=== PATIENT | female | born 1930 | race Caucasian/White ===

== ENCOUNTER 2017-01-28 17:40 | Inpatient (IN) | payer OTHER ==
[~2017-01-28] VITALS: Ht 152.4 cm; Wt 52.8 kg
[~2017-01-28 17:40] MED LIST: ATI0.5 PO; ATIVAN0.5 M1 PO; COL100 PO; DONEPEZIL HCL10 MG PO; DONEPEZIL HYDRO10 M2 PO; ECO81 PO; FER300 PO; GLU500 PO; HYD25 PO; LAC PO; LEVAQUIN750 MG PO; LIPI10 PO; LORAZEPAM0.5 MG PO; LOSARTAN POTASS1 TA5 PO; LOSARTAN POTASS50 M1 PO; MAC100 PO; MACROBID100 MG PO; MAG PO; METFORMIN HYDR500 M1 PO; MEV20 PO; NAMENDA10 M2 PO; NORCO1 TA2 PO; SERO100 PO; SEROQUEL50 M1 PO; SERTRALINE HYDR50 M1 PO; SERTRALINE50 M1 PO; SYN25 PO; TRA50 PO; TRAMADOL HCL50 MG PO; TRAZODONE150 M1 PO; TRAZODONE50 M1 PO; TYLENOL EXTRA500 M2 PO; VITC PO; ZES20 PO; ZOL50 PO
--- NOTE | 2017-01-28 18:02 | NUR ---
PT BIB [facility]. PER EMS: FAMILY STATED THAT PT ALOC HAS INCREASED WITH HX OF DEMENTIA AND REPORTS THAT THIS OCCURED PREVIOUSLY 2 MONTHS AGO WHICH WAS DUE TO UTI. UPON ARRIVAL: PT IS COMBATIVE WITH ATTEMPTS AT HITTING AND KICKING AND BITTING AND WAS IN 4PT SOFT RESTRAINTS UPON ARRIVAL. PT WAS TRANSFERED OVER FROM GURNEY TO BED W/O INCIDENT AND 4 PT RESTRAINTS REPLACED ONTO PT.
--- NOTE | 2017-01-28 18:03 | NUR ---
BLOOD SUGAR CHECK BY EMS WAS 92
--- NOTE | 2017-01-28 18:05 | NUR ---
PT NOTED TO HAVE SKIN TEARS TO LFA NAD L ELBOW. LARGE BANDAID PLACED TO LFA FOR PROTECTION FROM L WRIST RESTRAINT
--- NOTE | 2017-01-28 18:18 | NUR ---
DR DASILVA AT BEDSIDE FOR MSE
[2017-01-28 18:28] LABS: UA SPECIFIC GRAVITY 1.015 (1.005-1.035); microscopic required? YES; urine erythrocyte 1+ (NEGATIVE)
[2017-01-28 18:51] LABS: BASOPHIL % 0.6 % (0-2); PLATELET COUNT 150 x10^3mcL (130-400)
[2017-01-28 18:54] LABS: RED CELL DISTRIBUTION WIDTH 15.6 % (11.5-14.5)
--- NOTE | 2017-01-28 19:03 | NUR ---
SON BESIDES BED, AWARE OF CONDITION, AND AWARE OF THE REASON FOR RESTRAINTS
[2017-01-28 19:04] LABS: CALCIUM 9.4 mg/dL (8.5-10.1); CARBON DIOXIDE 22.9 mmol/L (21-32); CHLORIDE SERUM 105 mmol/L (98-107); CREATININE SERUM 2.1 mg/dL (0.6-1.0); GLUCOSE SERUM 115 mg/dL (74-106); POTASSIUM SERUM 4.6 mmol/L (3.5-5.1); SODIUM SERUM 140 mmol/L (136-145)
--- NOTE | 2017-01-28 19:10 | NUR ---
REPORT RECEIVED FROM RUFINA Dumont RN, AND CARE ASSUMED FOR THIS PT.
--- NOTE | 2017-01-28 19:13 | NUR ---
PT RECEIVED LYING ON GURNEY W/ SON AT BEDSIDE. PT ON FULL MONITORS. PT'S SON IS PLAYING MUSIC ON PHONE FOR PT FOR COMFORT. PER PT'S SON, PT IS ACTING CALMER AT THIS TIME, BUT PT STILL NOTED TO BE PULLING AGAINST RESTRAINTS. PT'S BREATHING EVEN AND UNLABORED. NO VISUAL SIGNS OF ACUTE OR RESP DISTRESS NOTED. BED IN LOWEST POSITION, SIDE RAILS UP X2. CALL LIGHT IN REACH. 4 PT RESTRAINTS REMAIN IN PLACE AT THIS TIME FOR SAFETY, 2 FINGERBREADTH WIDTH PRESENT W/ +PMSC.
[2017-01-28 19:18] LABS: CK-MB 2.8 ng/mL (0-3.6)
[2017-01-28] MEDS ORDERED: LORAZEPAM0.5 MG PO (19:29)
[2017-01-28] MEDS ORDERED: NAMENDA10 M2 PO (19:29)
[2017-01-28] MEDS ORDERED: ZOLOFT50 MG PO (19:30)
[2017-01-28] MEDS ORDERED: QUETIAPINE FUMA50 M1 PO (19:30)
[2017-01-28] MEDS ORDERED: LOSARTAN POTASS1 TAB PO (19:30)
[2017-01-28 19:31] LABS: ALBUMIN 3.7 g/dL (3.4-5.0); ALKALINE PHOSPHATASE 141 U/L (46-116); ALT/SGPT 12 U/L (14-59); AST/SGOT 21 U/L (15-37); BILIRUBIN TOTAL 0.34 mg/dL (0.20-1.00)
[2017-01-28] MEDS ORDERED: ARICEPT10 MG PO (19:31)
[2017-01-28] MEDS ORDERED: TRAZODONE50 M1 PO (19:31)
--- NOTE | 2017-01-28 20:40 | NUR ---
ANKLE RESTRAINTS REMOVED. PT'S SON AT BEDSIDE.
--- NOTE | 2017-01-28 20:41 | NUR ---
REPORT CALLED TO JOSE ANGEL ON [facility] FOR ADMISSION OF THIS PT.
[2017-01-28 21:38] VITALS: BP 158/76
--- NOTE | 2017-01-28 21:41 | NUR ---
RECEIVED PT FROM ED VIA [facility]. ORIENTED PT AND FAMILY TO ROOM AND SURROUNDINGS. IV NOTED TO LFA PATENT AND INTACT. TELE 15 PLACED ON PT READING NSR. INSTRUCTED PT ON THE USE OF CALL LIGHT FOR ASSISTANCE. ENDORSED PT TO PRIMARY NURSE CARLITA
[2017-01-28 21:47] LABS: FREE T4 0.8 ng/dL (0.76-1.46); T4(THYROXINE) 5.7 ug/dL (4.7-13.3)
[2017-01-28 21:48] LABS: T3 TOTAL 0.89 ng/mL
--- NOTE | 2017-01-28 22:21 | NUR ---
RECEIVED PT FROM REGIS MOLINA. PT AOX1. TELE 15, SR. DENIES CP/PRESSURE. PULSES GOOD, NO EDEMA NOTED. LUNG SOUNDS CLEAR, ON RA. NO DISTRESS NOTED. BOWEL SOUNDS ACTIVE. CARDENAS IN PLACE. GENERALIZED WEAKNESS. SKIN TEARS TO LFA AND L. ELBOW. PT DENIES PAIN. IV IN LFA, INTACT AND PATENT. BED IN LOWEST POSITION. CALL LIGHT WITHIN REACH. WILL CONTINUE TO MONITOR.
--- NOTE | 2017-01-29 01:35 | NUR ---
PT IN BED, AWAKE. FREQUENTLY TALKING AND STATING SHE IS SEEING PEOPLE IN HER ROOM. PT REORIENTED TO ROOM AND PLACE. BED IN LOWEST POSITION. CALL LIGHT WITHIN REACH. WILL CONTINUE TO MONITOR.
[2017-01-29 05:52] VITALS: BP 161/71
--- NOTE | 2017-01-29 06:02 | NUR ---
BP 161/71 MAP 88, DR. NOTIFIED. DR RAMSEY ORDERED 0900 DOSE OF [place] TO BE GIVEN EARLY.
[2017-01-29 06:37] LABS: BASOPHIL % 0.4 % (0-2)
[2017-01-29 06:57] LABS: PLATELET COUNT 114 x10^3mcL (130-400); RED CELL DISTRIBUTION WIDTH 15.2 % (11.5-14.5)
[2017-01-29 07:39] LABS: CALCIUM 8.5 mg/dL (8.5-10.1); CARBON DIOXIDE 19.1 mmol/L (21-32); CHLORIDE SERUM 109 mmol/L (98-107); CREATININE SERUM 1.9 mg/dL (0.6-1.0); GLUCOSE SERUM 109 mg/dL (74-106); MAGNESIUM 2.1 mg/dL (1.8-2.4); PHOSPHOROUS 3.6 mg/dL (2.5-4.9); POTASSIUM SERUM 4.2 mmol/L (3.5-5.1); SODIUM SERUM 140 mmol/L (136-145)
--- NOTE | 2017-01-29 07:59 | NUR ---
AT 0710 - RECEIVED PATIENT FROM NIGHT NURSE. PATIENT SLEEPING. RESPIRATIONS REGULAR. MONITOR SHOWING SINUS BRADYCARDIA; RATE 55. IV INFUSING NS AT 50ML/HR. PATIENT NOTED TO HAVE MULTIPLE AREAS OF ECCYMOSIS BUE. AT 0745 - PATIENT WAS SAT UP IN BED, OPENED EYES BRIEFLY. APPEARS TOO DROWSY TO EAT BREAKFAST AT THIS TIME.
--- NOTE | 2017-01-29 08:06 | NUR ---
SEEN BY DR SAMAYOA DURING MORNING ROUNDS. MEDICAL TEAM DOCTORS, SÁNCHEZ BRIONES AND MYSELF PRIMARY NURSE ALSO PRESENT. DR COTE SPOKE WITH PATIENT IN CITIZEN [place]. PLAN FOR HYDRATION AND IV ANTIBIOTICS FOR UTI.
[2017-01-29 10:03] VITALS: BP 155/62
[2017-01-29 10:16] LABS: RED BLOOD CELLS 3.81 M/mm3 (4.10-5.10)
--- NOTE | 2017-01-29 10:20 | NUR ---
AT 0850 - PATIENT'S GRAND-SON AT BEDSIDE. UPDATED ON CURRENT PLAN OF CARE. AT 1000 - PATIENT MORE AWAKE. SAT UP IN BED. TOOK ONLY SOME OF HER MORNING - THE FIRST ONES GIVEN, AFTER THAT SHE REFUSED ANYTHING PO; SPITTING IT OUT. NO SWALLOWING DIFFICULTIES NOTED. PATIENT MADE COMFORTABLE. BED-EXIT ALARM ACTIVATED.
[2017-01-29 10:50] LABS: IRON 45 ug/dL (50-170); TOTAL IRON BINDING CAPACITY 393 ug/dL (250-450)
--- NOTE | 2017-01-29 12:52 | NUR ---
PATIENT IS MORE AWAKE AT THIS TIME. CONFUSED. SITTING UP IN BED FOR LUNCH.
--- NOTE | 2017-01-29 13:55 | NUR ---
AT 1325 - SPOKE WITH DR ASHLEY REGARDING CRITICAL RADIOLOGY RESULT OF SMALL, PARTIAL, NON-OCCLUSIVE THROMOBUS R COMMON FEMOAL VEIN. NO NEW ORDERS. PATIENT HAS BEEN EATING LUNCH. APPEARS CO-OPERATIVE AT THIS TIME.
[2017-01-29 14:32] VITALS: BP 131/68
--- NOTE | 2017-01-29 14:34 | NUR ---
IV SALINE LOCKED PER NEW ORDERS. FOR REPEAT CBC AT 1830.
--- NOTE | 2017-01-29 15:21 | NUR ---
PATIENT BACK IN ROOM FOLLOWING CT OF HEAD.
[2017-01-29 17:20] VITALS: BP 151/63
--- NOTE | 2017-01-29 17:30 | NUR ---
PATIENT HAS BEEN PROVIDED WITH INSENTIVE SPIROMETER AND INSTRUCTED IN USE BY RT AND ENCOURAGED BY NURSE. PAIN UNDER CONTROL WITH LAST DOSE OF IV MORPHINE. FAMILY AT BEDSIDE.
--- NOTE | 2017-01-29 18:22 | NUR ---
PATIENT IS CONFUSED AND RESISTIVE AND COMATIVE WITH TREATMENTS AT TIME. HAD EATEN LUNCH BUT NOW REFUSING TO EAT DINNER. REMAINS SALINE LOCKED - AWAITING REPEAT H/H RESULT. CARDENAS CATHETER DRAINING YELLOW URINE - 750 ML OUTPUT THIS SHIFT. WILL ENDORSE CARE TO NIGHT NURSE.
[2017-01-29 19:04] LABS: BASOPHIL % 0.5 % (0-2); PLATELET COUNT 133 x10^3mcL (130-400); RED CELL DISTRIBUTION WIDTH 15.8 % (11.5-14.5)
--- NOTE | 2017-01-29 19:24 | NUR ---
AT 1900 - COMMENCED HEPARIN INFUSION AT 600 UNITS/HR AFTER LOADING DOSE OF 3200 UNITS. PTT AT 0100. SON AT BEDSIDE. AT 1910 - CARE ENDORSED TO NIGHT NURSE.
--- NOTE | 2017-01-29 20:00 | NUR ---
PT. AWAKE, ALERT, ORIENTED TO SELF. ABLE TO FOLLOW MOST SIMPLE COMMANDS. SPEECH CLEAR. DENIES HEADACHE OR DIZZINESS. BREATH SOUNDS CLEAR THROUGHOUT LUNG GORE, RESP. EVEN, UNLABORED. NO SOB NOTED. NSR ON MONITOR. NO EDEMA NOTED TO BLE. PEDAL PULSES MODERATE. BUE W/ SCATTERED ECCYMOSIS AND DISCOLORATION, LUE, AC AREA W/ DRIED SCABBED AREA, OLD BLOOD NOTED. NO BLEEDING NOTED. OLD SKIN TEAR. IV HEPARIN INFUSING AT 600 UNITS. ABD. SOFT AND FLAT, BOWEL SOUNDS ACTIVE. DENIES ABD. PAIN. BED LOW LAYING W/ CALL LIGHT WITHIN REACH, ALARM ON. SON AT BEDSIDE.
--- NOTE | 2017-01-29 20:57 | NUR ---
PT.'S INITIAL BLOOD SUGAR 55, REPEATED LEVEL 58. DEXTROSE IVP GIVEN PER PROTOCOL. PT. AWAKE AND ABLE TO FOLLOW COMMANDS. ASYMPTOMATIC. WILL MONITOR
--- NOTE | 2017-01-29 21:20 | NUR ---
REPEATED BLOOD SUGAR LEVEL 160.
[2017-01-29 21:30] VITALS: BP 120/51
--- NOTE | 2017-01-30 01:44 | NUR ---
PT. AGITATED, REFUSING TO HAVE HER BLOOD DRAWN. PT SUNDOWNING. CONFUSED AND ORIENTED TO SELF ONLY AT THIS TIME. PULLING TELE LINE AND IV TUBING. HEAT PLANT SPECIALIST UNABLE TO DRAW 0100 PTT LEVEL PER HEPARIN PROTOCOL. DR. SUBRAMANIAN MADE AWARE. ONE TIME DOSE OF HALDOL PO ORDERED.
--- NOTE | 2017-01-30 02:45 | NUR ---
PT. MORE QUIET NOW. CLINIC ASSISTANT WAS ABLE TO DRAW PTT LEVEL.
--- NOTE | 2017-01-30 03:47 | NUR ---
PTT LEVEL BACK, 32.3. PER PROTOCOL, 3200 UNIT BOLUS TO BE GIVEN. DOSE INCREASED BY 200 UNITS. NOW AT 800 UNITS. NEXT PTT AT 0745.
[2017-01-30 05:30] VITALS: BP 113/53
[2017-01-30 05:33] VITALS: BP 113/53
[2017-01-30 07:04] LABS: BASOPHIL % 0.3 % (0-2); PLATELET COUNT 114 x10^3mcL (130-400); RED CELL DISTRIBUTION WIDTH 15.5 % (11.5-14.5)
[2017-01-30 07:23] LABS: CALCIUM 8.6 mg/dL (8.5-10.1); CARBON DIOXIDE 21.1 mmol/L (21-32); CHLORIDE SERUM 105 mmol/L (98-107); CREATININE SERUM 1.8 mg/dL (0.6-1.0); GLUCOSE SERUM 101 mg/dL (74-106); MAGNESIUM 1.7 mg/dL (1.8-2.4); PHOSPHOROUS 3.6 mg/dL (2.5-4.9); POTASSIUM SERUM 4.1 mmol/L (3.5-5.1); SODIUM SERUM 140 mmol/L (136-145)
--- NOTE | 2017-01-30 07:50 | NUR ---
RECEIVED PT IN BED A/A/OX1 PERSON ONLY, FORGETFUL AND CONFUSED AT TIMES HX OF ALZHEIMERS/DEMENTIA. RESP EVEN AND UNLABORED WITH CLEAR BS BILAT, DENIES ANY SOB/CP/PRESSURE AT THIS. NO EDEMA NOTED, +DVT TO RLE ON HEPARIN DRIP PROTOCOL AT 800 UNITS/HR. ABD SOFT, NONTENDER WITH ACTIVE BS X4. DENIES ANY N/V AT THIS TIME. CARDENAS CATH TO GRAVITY WITH CLEAR YELLOW URINE. GEN WEAKNESS UP WITH PT. CALL LIGHT IN REACH WITH BED ALARM FOR SAFETY. FREQUENT VISUAL CHECKS.
--- NOTE | 2017-01-30 08:45 | NUR ---
RECEIVED PTT OF 63.7, FIRST THERAUPEDIC LEVEL. NO CHANGE TO HEPARIN DRIP AT THIS TIME CONT AT 800 UNITS/HR. NEXT PTT AT 1245. WILL CONT TO MONITOR.
[2017-01-30 09:03] VITALS: BP 147/58
[2017-01-30 12:32] VITALS: BP 129/48
--- NOTE | 2017-01-30 13:10 | NUR ---
RECEIVED 2ND THERAPEUDIC PTT RESULT OF 58.7. PER PROTOCOL PT TO HAVE DAILY PTT. WILL CONT TO MONITOR.
--- NOTE | 2017-01-30 13:28 | NUR ---
PT NOTE 3851-2965 Pt IS AN 86 Y/O FEMALE ADMITTED DUE TO ALOC; DX WITH METABOLIC ENCEPHALOPATHY 2/2 ALZHEIMER'S DEMENTIA EXACERBATION VS POSS UTI; DEHYDRATION US VENOUS BLE- NON OCLCUSIVE THROMBUS R COMMON FEM VEIN; CURRENTLY ON HEPARIN PER RN HEAD CT- NO ACUTE IC ABN; CXR- NO ACUTE CP PROCESS PMH: ALZHEIMER'S DEMEMTIA, OA, HTN, MULTIPLE UTIs Pt LIVES W/FAMILY IN A SSH WITH 4 STEPS TO ENTER, 1 SIDERAIL; Pt WAS ASSISTED IN ALL ADLs, HAS CG 5 HRS/DAY M-F; LIMITED AMBULATION USING FWW WITH ASSIST. Pt WAS CLEARED FOR PT PER RN. Pt WAS SEEN ASLEEP BUT EASILY ROUSABLE. SPOUSE PRESENT AT BEDSIDE, AND ASSISTED W/COMMUNICATION, CYRACOM AVAILABLE. Pt AGREED TO PARTICIPATE W/PT. S:DENIES PAIN O:BP AT REST 99/35, HR 67; SaO2 98% ON ROOM AIR; AO X1 ONLY BED MOBILITY: SUPINE<->SIT MAX ASSIST TRANSFERS: SIT-STAND MAX ASSIST STANDING BALANCE F-/P+ GAIT 24 FT FWW MOD ASSIST; NOTED DECREASED STEP LENGTH BLE, UNSTEADY GAIT; ASSIST REQUIRED FOR MANEUVERING FWW; NARROW REBECA. BP POST GAIT IN SUPINE 108/33, HR 71; RN NOTIFIED REGARDING LOW DIASTOLIC BP READINGS. Pt DENIES DIZZINESS DURING STANDING/GAIT. Pt WAS MADE COMFORTABLE IN BED, CALL LIGHT AND TABLE IN REACH, IV LINE INTACT, 3 SIDERAILS UP FOR SAFETY. Pt WAS LEFT IN THE CARE OF THE SPOUSE. RN NOTIFIED. A:Pt DEMONSTRATES WEAKNESS, IMPAIRED BALANCE, AND GAIT INSTABILITY; FALL RISK. Pt REQUIRED SAFETY FOR FWW MANAGEMENT DURING GAIT, VC TO INCREASE STEP LENGTH. Pt WAS EDUCATED ON PROPER HAND PLACEMENT FOR SAFE TRANSFERS, FAIR RETURN DEMO. P:POC TO CONSIST OF THEREX, THERAT, GAIT TRAINING, BALANCE EX, SAFETY EDUC; ONCE DAILY 5X/WK X1 WEEK. SNF POST ACUTE IS RECOMMENDED TO CONT WITH REHAB. DX AND POC DISCUSSED W/PACKAGE PICK UP. [id number] 2PA(1) ASSIST WITH TRANSFERS PVE(1) SET-UP [id number], [id number], TUG SCORE=19sec [id number] THEREX FOR BOTH LE PERFORMED IN SUPINE INCLUDING HEEL SLIDES, ANKLE PUMPS, AND HIP ABD; X 10 REPS EACH. THEREX8
--- NOTE | 2017-01-30 14:20 | NUR ---
PT RESTIGN AT THIS TIME DENIES ANY DISCOMFORT. CALL LIGHT IN REACH NEEDS ATTENDED TO.
[2017-01-30 16:29] VITALS: BP 132/61
--- NOTE | 2017-01-30 18:20 | NUR ---
PT RESTING COMFORTABLY COMFORTABLY AT THIS TIME. WITH IVF AND HEPARIN DRIP INFUSING ORDERED. PT DENIES ANY PAIN/DISCOMFORT. CARDENAS CATH TO GRAVITY. AT BEDSIDE CALL LIGHT IN REACH NEEDS ATTENDED TO.
--- NOTE | 2017-01-30 19:48 | NUR ---
PT. AWAKE, ALERT, ORIENTED TO SELF AND PLACE. ABLE TO FOLLOW SIMPLE COMMANDS. SPEECH CLEAR. DENIES HEADACHE OR DIZZINESS. BREATH SOUNDS CLEAR THROUGHOUT LUNG GORE, RESP. EVEN, UNLABORED. NO SOB NOTED. NSR ON MONITOR, NO ECTOPIES NOTED AT THIS TIME. SCATTERED ECCYMOSIS TO BUE, SKIN TEAR, DRIED AND SCABBED TO LFA, AC AREA. NO EDEMA TO BLE, PEDAL PULSES MODERATE. IVF NS AT 50CC/HR, HEPARIN DRIP AT 800 UNITS. FAMILY AT BEDSIDE.
--- NOTE | 2017-01-30 20:00 | NUR ---
LATE ENTRY: HEPARIN DRIP STOPPED PER ORDER. XARELTO, PO ORDERED FOR 2200 TONIGHT.
[2017-01-30 20:41] VITALS: BP 149/59
--- NOTE | 2017-01-31 02:34 | NUR ---
PT. SLEEPING AT THIS TIME. NO DISTRESSNOTED THUS FAR. IVF INFUSING WELL. SITE INTACT. BED LOW LAYING W/ ALARM ON. CALL LIGHT WITHIN REACH.
[2017-01-31 05:48] VITALS: BP 147/63
[2017-01-31 06:23] LABS: BASOPHIL % 0.4 % (0-2)
[2017-01-31 06:32] LABS: PLATELET COUNT 107 x10^3mcL (130-400); RED CELL DISTRIBUTION WIDTH 15.4 % (11.5-14.5)
[2017-01-31 06:33] LABS: CALCIUM 8.6 mg/dL (8.5-10.1); CARBON DIOXIDE 22.7 mmol/L (21-32); CHLORIDE SERUM 108 mmol/L (98-107); CREATININE SERUM 1.9 mg/dL (0.6-1.0); GLUCOSE SERUM 92 mg/dL (74-106); MAGNESIUM 2.5 mg/dL (1.8-2.4); PHOSPHOROUS 4.1 mg/dL (2.5-4.9); POTASSIUM SERUM 4.5 mmol/L (3.5-5.1); SODIUM SERUM 140 mmol/L (136-145)
--- NOTE | 2017-01-31 06:51 | NUR ---
PT. REFUSING TO HAVE F/C CLEANSED. BECOMES VERY UPSET ANS STRIKES AT STAFF WHEN ATTEMPTS ARE MADE TO CLEAN F/C TUBING PER PROTOCOL. WILL ENDORSE TO INCOMING NURSE FOR ATTEMPTS LATER.
--- NOTE | 2017-01-31 07:35 | NUR ---
RECEIVED PT RESTING IN BED. NO ACUTE DISTRESS. RESP EVEN AND UNLABORED ON RA. NO SOB NOTED. NO PAIN NOTED. IVF INFUSING. BED IN LOWEST POSITION, CALL LIGHT WITHIN REACH. WILL CONTINUE TO MONITOR.
[2017-01-31] MEDS ORDERED: NITROFURANTOIN50 MG PO (09:56)
[2017-01-31] MEDS ORDERED: XARELTO15 M1 PO (10:01)
[2017-01-31 10:06] VITALS: BP 117/44
[2017-01-31 12:00] VITALS: BP 118/48
--- NOTE | 2017-01-31 12:17 | NUR ---
PT NOTES TIME 3325-2133 S: CLEARED BY RN FOR P.T. TX. PATIENT IS AWAKE & ALERT IN A SEMI DORADO POSITION IN BED. AGREEABLE TO P.T. TX. C/O R SHOULDER PAIN 3/10 BASED ON SUBRAMANIAN BLAIR SCALE. O: VS AT REST BP 122/47, HR 59 BPM, SPO2 ON RA 97% BED MOBILITY: SUPINE<>SIT W/ MOD/MAX ASSIST. VC GIVEN W/ STEP BY STEP SEQUENCE FOR BED MOBILITY. WHILE SEATED AT EOB, PATIENT TENDS TO RETROLEAN & WILL LOB. REQUIRES TC/VC TO IMPROVE TRUNK CONTROL TO MAINTAIN SITTING BALANCE. TRANSFER: SIT<>STAND W/ FWW MOD ASSIST. VC GIVEN W/ PROPER SEQUENCE FOR SIT<>STAND TRANSFER W/ FOCUS ON PUSH OFF FROM BED INSTEAD OF PULLING FROM FWW TO STAND. GAIT: 45FT W/ FWW MIN/MOD ASSIST. PATIENT HAS A DECREASE GAIT VELOCITY. PATIENT IS CONFUSED. REQUIRES MANUAL ASSISTANCE W/ MANUEVERING FWW SAFELY AROUND OBSTACLES. NBOS W/ CUES TO WIDEN REBECA. SHORTENED STEP LENGTHS. EDUCATED PATIENT ON SAFETY FOR FALL PREVENTION & HEP FOR STRENGTHENING W/ P UNDERSTANDING. COOPERATIVE & APPRECIATIVE OF CARE. THER EX AAROM/AROM SHOULDER FLEXION, ELBOW FLEX/EXT, HIP FLEXION, KNEE FLEX/EXT, HIP ABD/ADD, SLR X 10 REPS. PATIENT IS SAFELY & COMFORTABLY IN A SEMI DORADO POSITION IN BED. 3 SIDERAILS UP. BED ALARM ON. RN NOTIFIED. P: DISCUSSED W/ PRIMARY PHYSICAL THERAPIST GT15',TA15',[id number]',PVE((2) ADDITIONAL STAFF SBA FOR SAFETY)
--- NOTE | 2017-01-31 12:28 | NUR ---
PT RESTING COMFORTABLY IN BED. NO ACUTE DISTRESS NOTED. NO C/O PAIN. IV FLUIDS INFUSING. FAMILY AT BEDSIDE. BED IN LOWEST POSITION. CALL LIGHT IN REACH. WILL CONTINUE TO MONITOR.
[2017-01-31 14:08] VITALS: BP 118/48
--- NOTE | 2017-01-31 14:18 | NUR ---
RONALD DC'D ORDERED. PT TOLERATED WELL. WILL CONTINUE TO MONITOR.
[2017-01-31 16:21] VITALS: BP 137/52
--- NOTE | 2017-01-31 18:47 | NUR ---
GAVE REPORT TO STEFANIE DUBOSE FROM [facility]. PT WILL BE GOING TO RM 17A, RECEIVED BY DR. WALTERS. PROFESSIONAL DEVELOPMENT MANAGER TIME SET FOR 845PM WITH [facility]. FAMILY AWARE. DRESSING TO LFA CHANGED. PT IN NO ACUTE DISTRESS. IVF INFUSING. BED IN LOWEST POSITION, CALL LIGHT WITHIN REACH. WILL ENDORSE TO INCOMING SHIFT.
--- NOTE | 2017-01-31 21:19 | NUR ---
dr. hightower aware pt refused all po meds tongiht including xarelto
--- NOTE | 2017-01-31 21:41 | NUR ---
INFORMED NURSE STEFANIE OF [facility] PT REFUSED PO MEDS TONIGHT, HALDOL 5MG ADMINISTERED IM FOR AGITATION PRIOR TO TRANSFER. PT WAS TRANSFERRED VIA [facility]. CALM AND AWAKE, BREATHING EVEN AND UNLABORED.
--- NOTE | 2017-01-31 23:26 | NUR ---
late entry: 2000h vital signs: bp 152/74, pr 99, rr 20, o2 sat 96% room air. temp 99.0
== END 2017-01-31 21:43 | DRG 56 ==
LOC: ED 17:40 → DU 20:10
PROVIDERS: Emergency Medicine; Family Medicine; ADMIT Family Medicine
DX: G30.9 Alzheimer's disease, unspecified (principal); G93.41 Metabolic encephalopathy; N17.0 Acute kidney failure with tubular necrosis; N39.0 Urinary tract infection, site not specified; I82.411 Acute embolism and thrombosis of right femoral vein; N17.9 Acute kidney failure, unspecified; F02.80 Dementia in other diseases classified elsewhere, unspecified severity, without behavioral disturbance, psychotic disturbance, mood disturbance, and anxiety; E86.0 Dehydration; R73.03 Prediabetes; M19.90 Unspecified osteoarthritis, unspecified site; E78.5 Hyperlipidemia, unspecified; D50.9 Iron deficiency anemia, unspecified; I73.9 Peripheral vascular disease, unspecified; D69.6 Thrombocytopenia, unspecified; N18.9 Chronic kidney disease, unspecified; I12.9 Hypertensive chronic kidney disease with stage 1 through stage 4 chronic kidney disease, or unspecified chronic kidney disease
CPT/HCPCS: 82962; 83880; 84439; 97110-GP; 97116-GP; 97530-GP; G0480; J0696; J1630; J1644; J3475; J3490; J7030; Q0092

== ENCOUNTER 2017-02-20 14:21 | Inpatient (IN) | payer OTHER ==
[~2017-02-20] VITALS: Ht 157.5 cm; Wt 49.9 kg
[~2017-02-20 14:21] MED LIST changes: +ARICEPT10 MG PO; +LOSARTAN POTASS1 TAB PO; +NITROFURANTOIN50 MG PO; +QUETIAPINE FUMA50 M1 PO; +XARELTO15 M1 PO; +ZOLOFT50 MG PO
[2017-02-20 16:23] LABS: BASOPHIL % 0.4 % (0-2)
[2017-02-20 16:33] LABS: PLATELET COUNT 129 x10^3mcL (130-400); RED CELL DISTRIBUTION WIDTH 14.9 % (11.5-14.5)
[2017-02-20 16:52] LABS: CALCIUM 9.3 mg/dL (8.5-10.1); CARBON DIOXIDE 21.1 mmol/L (21-32); CHLORIDE SERUM 105 mmol/L (98-107); CREATININE SERUM 2.6 mg/dL (0.6-1.0); GLUCOSE SERUM 126 mg/dL (74-106); POTASSIUM SERUM 3.9 mmol/L (3.5-5.1); SODIUM SERUM 141 mmol/L (136-145)
[2017-02-20 16:57] LABS: ALBUMIN 3.9 g/dL (3.4-5.0); ALKALINE PHOSPHATASE 131 U/L (46-116); ALT/SGPT 16 U/L (14-59); AST/SGOT 23 U/L (15-37); BILIRUBIN TOTAL 0.5 mg/dL (0.20-1.00); CHOLESTEROL 172 mg/dL (<200); TOTAL PROTEIN, SERUM 7.9 g/dL (6.4-8.2)
[2017-02-20 19:44] LABS: CHOLESTEROL/HDL RATIO 2.4
[2017-02-20 19:48] LABS: T3 TOTAL 0.88 ng/mL
[2017-02-20 19:49] LABS: FREE T4 1.14 ng/dL (0.76-1.46); FREE THYROXINE INDEX 2.7 ug/dL (1.4-4.5); T4(THYROXINE) 7.2 ug/dL (4.7-13.3)
[2017-02-20 19:52] LABS: microscopic required? NO
[2017-02-20 20:03] LABS: UA SPECIFIC GRAVITY 1.015 (1.005-1.035); urine erythrocyte NEGATIVE (NEGATIVE)
[2017-02-20] MEDS ORDERED: ATIVAN0.5 M1 PO (20:44)
[2017-02-21 01:45] VITALS: BP 1471/64
[2017-02-21 05:46] VITALS: BP 157/48
[2017-02-21 06:16] LABS: BASOPHIL % 0.5 % (0-2)
[2017-02-21 06:35] LABS: CARBON DIOXIDE 19.3 mmol/L (21-32); CHLORIDE SERUM 111 mmol/L (98-107); CREATININE SERUM 2.1 mg/dL (0.6-1.0); GLUCOSE SERUM 110 mg/dL (74-106); MAGNESIUM 1.9 mg/dL (1.8-2.4); PHOSPHOROUS 3.6 mg/dL (2.5-4.9); POTASSIUM SERUM 3.6 mmol/L (3.5-5.1); SODIUM SERUM 144 mmol/L (136-145)
[2017-02-21 07:17] LABS: PLATELET COUNT 109 x10^3mcL (130-400); RED CELL DISTRIBUTION WIDTH 15.4 % (11.5-14.5)
[2017-02-21 09:09] VITALS: BP 173/77
[2017-02-21] MEDS ORDERED: CIP250 PO (10:40)
[2017-02-21] MEDS ORDERED: SERO100 PO (10:41)
[2017-02-21] MEDS ORDERED: QUETIAPINE FUMA25 M1 PO (10:42)
[2017-02-21] MEDS ORDERED: ELIQUIS2.5 MG PO (10:43)
[2017-02-21 13:47] VITALS: BP 136/46
[2017-02-21 18:44] VITALS: BP 160/62
[2017-02-21 21:00] VITALS: BP 153/51
[2017-02-22 06:34] VITALS: BP 170/61
[2017-02-22 08:50] VITALS: BP 134/56
[2017-02-22 14:00] VITALS: BP 129/59
[2017-02-22 17:14] VITALS: BP 127/64
[2017-02-22 22:10] VITALS: BP 155/51
[2017-02-23 05:14] VITALS: BP 173/73
[2017-02-23 06:08] LABS: BASOPHIL % 0.4 % (0-2)
[2017-02-23 06:22] LABS: CALCIUM 8.7 mg/dL (8.5-10.1); CARBON DIOXIDE 20.9 mmol/L (21-32); CHLORIDE SERUM 111 mmol/L (98-107); CREATININE SERUM 1.6 mg/dL (0.6-1.0); GLUCOSE SERUM 107 mg/dL (74-106); POTASSIUM SERUM 3.6 mmol/L (3.5-5.1); SODIUM SERUM 143 mmol/L (136-145)
[2017-02-23 06:24] VITALS: BP 149/66
[2017-02-23 07:00] LABS: PLATELET COUNT 98 x10^3mcL (130-400); RED CELL DISTRIBUTION WIDTH 15.2 % (11.5-14.5)
[2017-02-23 09:24] VITALS: BP 195/82
[2017-02-23 10:30] VITALS: BP 152/53
[2017-02-23 21:16] VITALS: BP 139/55
[2017-02-24 05:13] VITALS: BP 159/69
[2017-02-24 09:39] VITALS: BP 142/60
[2017-02-24 18:11] VITALS: BP 141/62
[2017-02-24 20:46] VITALS: BP 138/47
[2017-02-25 06:12] VITALS: BP 136/58
[2017-02-25 06:38] LABS: CALCIUM 8.3 mg/dL (8.5-10.1); CARBON DIOXIDE 21.2 mmol/L (21-32); CHLORIDE SERUM 111 mmol/L (98-107); CREATININE SERUM 1.5 mg/dL (0.6-1.0); GLUCOSE SERUM 100 mg/dL (74-106); MAGNESIUM 1.3 mg/dL (1.8-2.4); PHOSPHOROUS 3.1 mg/dL (2.5-4.9); POTASSIUM SERUM 4.1 mmol/L (3.5-5.1); SODIUM SERUM 142 mmol/L (136-145)
[2017-02-25 07:49] LABS: BASOPHIL % 0.5 % (0-2); PLATELET COUNT 107 x10^3mcL (130-400); RED CELL DISTRIBUTION WIDTH 15.3 % (11.5-14.5)
[2017-02-25 09:54] VITALS: BP 155/58
[2017-02-25 16:50] VITALS: BP 142/63
[2017-02-25 21:03] VITALS: BP 137/55
[2017-02-26 06:02] VITALS: BP 147/57
[2017-02-26 06:19] LABS: BASOPHIL % 0.3 % (0-2)
[2017-02-26 06:45] LABS: CALCIUM 8.6 mg/dL (8.5-10.1); CARBON DIOXIDE 24.4 mmol/L (21-32); CHLORIDE SERUM 110 mmol/L (98-107); CREATININE SERUM 1.6 mg/dL (0.6-1.0); GLUCOSE SERUM 99 mg/dL (74-106); MAGNESIUM 2.7 mg/dL (1.8-2.4); PHOSPHOROUS 2.9 mg/dL (2.5-4.9); POTASSIUM SERUM 4.6 mmol/L (3.5-5.1); SODIUM SERUM 140 mmol/L (136-145)
[2017-02-26 06:47] LABS: PLATELET COUNT 112 x10^3mcL (130-400); RED CELL DISTRIBUTION WIDTH 15.1 % (11.5-14.5)
[2017-02-26 09:33] VITALS: BP 113/56
[2017-02-26 14:00] VITALS: BP 120/73
[2017-02-26 18:47] VITALS: BP 118/65
[2017-02-27 08:56] VITALS: BP 152/68
[2017-02-27 17:44] LABS: BASOPHIL % 0.4 % (0-2); PLATELET COUNT 138 x10^3mcL (130-400); RED CELL DISTRIBUTION WIDTH 15.1 % (11.5-14.5)
[2017-02-27 17:54] LABS: CALCIUM 8.9 mg/dL (8.5-10.1); CARBON DIOXIDE 24.6 mmol/L (21-32); CHLORIDE SERUM 106 mmol/L (98-107); CREATININE SERUM 1.7 mg/dL (0.6-1.0); GLUCOSE SERUM 114 mg/dL (74-106); MAGNESIUM 1.7 mg/dL (1.8-2.4); PHOSPHOROUS 2.7 mg/dL (2.5-4.9); SODIUM SERUM 140 mmol/L (136-145)
[2017-02-27 21:45] VITALS: BP 127/51
[2017-02-28 06:24] LABS: CARBON DIOXIDE 23.8 mmol/L (21-32); CHLORIDE SERUM 106 mmol/L (98-107); GLUCOSE SERUM 115 mg/dL (74-106); MAGNESIUM 1.9 mg/dL (1.8-2.4); PHOSPHOROUS 4.1 mg/dL (2.5-4.9); SODIUM SERUM 143 mmol/L (136-145)
[2017-02-28 07:01] LABS: BASOPHIL % 0.4 % (0-2); PLATELET COUNT 135 x10^3mcL (130-400); RED CELL DISTRIBUTION WIDTH 14.9 % (11.5-14.5)
[2017-02-28 09:41] VITALS: BP 131/50
[2017-02-28 10:54] VITALS: Ht 157.5 cm; Wt 49.9 kg
[2017-02-28 12:00] VITALS: BP 104/52
== END 2017-02-28 22:12 | disposition short-term general hospital (02) | DRG 56 ==
LOC: ED 14:21 → DU 02-21 00:21 → MU 02-21 00:21 → DU 02-21 00:21 → MU 02-22 22:00 → DU 02-26 08:13 → MU 02-27 10:47
PROVIDERS: Emergency Medicine; ADMIT Family Medicine
DX: G30.9 Alzheimer's disease, unspecified (principal); N17.0 Acute kidney failure with tubular necrosis; G93.41 Metabolic encephalopathy; F02.81 Dementia in other diseases classified elsewhere, unspecified severity, with behavioral disturbance; N39.0 Urinary tract infection, site not specified; I82.511 Chronic embolism and thrombosis of right femoral vein; E86.0 Dehydration; F32.9 Major depressive disorder, single episode, unspecified; I10 Essential (primary) hypertension; D63.8 Anemia in other chronic diseases classified elsewhere; Z66 Do not resuscitate; F29 Unspecified psychosis not due to a substance or known physiological condition; E83.41 Hypermagnesemia; E78.00 Pure hypercholesterolemia, unspecified; M19.90 Unspecified osteoarthritis, unspecified site; Z79.899 Other long term (current) drug therapy; Z87.440 Personal history of urinary (tract) infections; Z79.01 Long term (current) use of anticoagulants; Z78.1 Physical restraint status
CPT/HCPCS: 83880; 84439; 97110-GP; 97116-GP; 97530-GP; G0480; J1630; J1940; J2060; J3475; J7030; Q0092

== ENCOUNTER 2018-07-08 17:38 | Inpatient (IN) | payer OTHER ==
[~2018-07-08] VITALS: Ht 152.4 cm; Wt 56.3 kg
[~2018-07-08 17:38] MED LIST changes: +CIP250 PO; +ELIQUIS2.5 MG PO; +QUETIAPINE FUMA25 M1 PO
[2018-07-08 19:12] LABS: CARBON DIOXIDE 26.5 mmol/L (21-32); CHLORIDE SERUM 102 mmol/L (98-107); GLUCOSE SERUM 120 mg/dL (74-106); SODIUM SERUM 140 mmol/L (136-145)
[2018-07-08 19:17] LABS: ALKALINE PHOSPHATASE 88 U/L (46-116); ALT/SGPT 21 U/L (14-59); AST/SGOT 21 U/L (15-37); BILIRUBIN TOTAL 0.4 mg/dL (0.20-1.00)
[2018-07-08 19:18] LABS: ALBUMIN 2.9 g/dL (3.4-5.0); TOTAL PROTEIN, SERUM 8.8 g/dL (6.4-8.2)
[2018-07-08 19:23] LABS: BASOPHIL % 0.3 % (0-2); PLATELET COUNT 223 x10^3mcL (130-400); RED CELL DISTRIBUTION WIDTH 14.7 % (11.5-14.5)
[2018-07-08] MEDS ORDERED: FERROUS SULFAT325 M2 PO (20:13)
[2018-07-08] MEDS ORDERED: CRANBERRY425 MG PO (20:14)
[2018-07-08] MEDS ORDERED: NOR5 PO (20:15)
[2018-07-08] MEDS ORDERED: GOOD SENSE ASPI81 M3 PO (20:15)
[2018-07-08] MEDS ORDERED: LIPI10 PO (20:15)
[2018-07-08] MEDS ORDERED: RISPERDAL1 M1 PO (20:15)
[2018-07-08] MEDS ORDERED: ARICEPT10 MG PO (20:16)
[2018-07-08] MEDS ORDERED: TRAZODONE50 M1 PO (20:16)
[2018-07-08] MEDS ORDERED: LEADER MELATONIN5 MG PO (20:17)
[2018-07-08] MEDS ORDERED: DEPAKOTE ER250 M1 PO (20:17)
[2018-07-08] MEDS ORDERED: NEPHRO-VITE VITA1 EA PO (20:18)
[2018-07-08] MEDS ORDERED: DEPAKOTE SPRIN125 MG PO (20:18)
[2018-07-08] MEDS ORDERED: VITAMIN D5000 I1 PO (20:19)
[2018-07-08] MEDS ORDERED: RISPERIDONE1 MG PO (20:19)
[2018-07-08 23:30] VITALS: BP 126/38
[2018-07-08 23:56] LABS: MAGNESIUM 2.4 mg/dL (1.8-2.4); PHOSPHOROUS 4.4 mg/dL (2.5-4.9)
[2018-07-08 23:59] LABS: CHOLESTEROL/HDL RATIO 2.6
[2018-07-09 00:04] LABS: FREE T4 1.38 ng/dL (0.76-1.46); FREE THYROXINE INDEX 3.3 ug/dL (1.4-4.5); T4(THYROXINE) 9.3 ug/dL (4.7-13.3)
[2018-07-09 00:23] LABS: T3 TOTAL 0.76 ng/mL
[2018-07-09 05:42] VITALS: BP 96/50
[2018-07-09 06:17] LABS: CALCIUM 9.2 mg/dL (8.5-10.1); CARBON DIOXIDE 25.2 mmol/L (21-32); CHLORIDE SERUM 107 mmol/L (98-107); CREATININE SERUM 1.8 mg/dL (0.6-1.0); GLUCOSE SERUM 118 mg/dL (74-106); POTASSIUM SERUM 3.8 mmol/L (3.5-5.1); SODIUM SERUM 142 mmol/L (136-145)
[2018-07-09 06:26] LABS: BASOPHIL % 0.3 % (0-2); PLATELET COUNT 203 x10^3mcL (130-400); RED CELL DISTRIBUTION WIDTH 14.1 % (11.5-14.5)
[2018-07-09 08:14] VITALS: BP 130/36
[2018-07-09 13:16] VITALS: BP 134/55
[2018-07-09 17:50] VITALS: BP 127/41
[2018-07-09 19:11] LABS: microscopic required? YES; urine erythrocyte 2+ (NEGATIVE)
[2018-07-09 19:43] LABS: AMPHETAMINE QUAL UR NONE DETECTED (See below)
[2018-07-09 20:49] VITALS: BP 151/83
[2018-07-10 05:53] VITALS: BP 142/50
[2018-07-10 06:07] LABS: BASOPHIL % 0.4 % (0-2); PLATELET COUNT 224 x10^3mcL (130-400)
[2018-07-10 06:25] LABS: CALCIUM 9.1 mg/dL (8.5-10.1); CARBON DIOXIDE 25.4 mmol/L (21-32); CHLORIDE SERUM 107 mmol/L (98-107); CREATININE SERUM 1.6 mg/dL (0.6-1.0); GLUCOSE SERUM 136 mg/dL (74-106); MAGNESIUM 1.7 mg/dL (1.8-2.4); PHOSPHOROUS 3.1 mg/dL (2.5-4.9); POTASSIUM SERUM 3.8 mmol/L (3.5-5.1); SODIUM SERUM 141 mmol/L (136-145)
[2018-07-10 08:30] VITALS: BP 134/56
[2018-07-10 13:15] VITALS: BP 142/62
[2018-07-10 18:10] VITALS: BP 131/53
[2018-07-10 20:49] VITALS: BP 134/54
[2018-07-11 05:16] VITALS: BP 109/62
[2018-07-11 06:58] LABS: BASOPHIL % 0.4 % (0-2); PLATELET COUNT 186 x10^3mcL (130-400); RED CELL DISTRIBUTION WIDTH 13.9 % (11.5-14.5)
[2018-07-11 07:27] LABS: CARBON DIOXIDE 26.2 mmol/L (21-32); CHLORIDE SERUM 108 mmol/L (98-107); CREATININE SERUM 1.3 mg/dL (0.6-1.0); GLUCOSE SERUM 117 mg/dL (74-106); MAGNESIUM 1.7 mg/dL (1.8-2.4); PHOSPHOROUS 2.7 mg/dL (2.5-4.9); POTASSIUM SERUM 3.7 mmol/L (3.5-5.1); SODIUM SERUM 140 mmol/L (136-145)
[2018-07-11 09:24] VITALS: BP 149/52
[2018-07-11 12:57] VITALS: BP 158/68
[2018-07-11 18:32] VITALS: BP 119/40
[2018-07-11 20:50] VITALS: BP 126/47
[2018-07-12 05:23] VITALS: BP 147/80
[2018-07-12 06:10] LABS: BASOPHIL % 0.4 % (0-2); PLATELET COUNT 170 x10^3mcL (130-400); RED CELL DISTRIBUTION WIDTH 13.8 % (11.5-14.5)
[2018-07-12 06:30] LABS: CALCIUM 8.7 mg/dL (8.5-10.1); CARBON DIOXIDE 23.7 mmol/L (21-32); CHLORIDE SERUM 110 mmol/L (98-107); CREATININE SERUM 1.3 mg/dL (0.6-1.0); GLUCOSE SERUM 102 mg/dL (74-106); MAGNESIUM 2.2 mg/dL (1.8-2.4); PHOSPHOROUS 2.9 mg/dL (2.5-4.9); POTASSIUM SERUM 3.4 mmol/L (3.5-5.1); SODIUM SERUM 143 mmol/L (136-145)
[2018-07-12 08:26] VITALS: BP 150/61
[2018-07-12 13:33] VITALS: BP 146/67
[2018-07-12 16:17] LABS: IRON 47 ug/dL (50-170)
[2018-07-12 16:25] LABS: TOTAL IRON BINDING CAPACITY 144 ug/dL (250-450)
[2018-07-12 16:43] VITALS: BP 139/60
[2018-07-12 20:48] VITALS: BP 150/56
[2018-07-13 05:35] VITALS: BP 145/55
[2018-07-13 06:52] LABS: BASOPHIL % 0.3 % (0-2); PLATELET COUNT 185 x10^3mcL (130-400); RED CELL DISTRIBUTION WIDTH 13.9 % (11.5-14.5)
[2018-07-13 06:55] LABS: CALCIUM 8.8 mg/dL (8.5-10.1); CARBON DIOXIDE 20.6 mmol/L (21-32); CHLORIDE SERUM 106 mmol/L (98-107); CREATININE SERUM 1.3 mg/dL (0.6-1.0); GLUCOSE SERUM 116 mg/dL (74-106); POTASSIUM SERUM 4.3 mmol/L (3.5-5.1); SODIUM SERUM 137 mmol/L (136-145)
[2018-07-13 07:54] VITALS: BP 154/63
[2018-07-13 13:04] VITALS: BP 140/67
[2018-07-13 16:02] VITALS: BP 138/74
[2018-07-13 20:47] VITALS: BP 112/45
[2018-07-14 05:25] VITALS: BP 132/57
[2018-07-14 06:04] LABS: CALCIUM 8.8 mg/dL (8.5-10.1); CARBON DIOXIDE 25.2 mmol/L (21-32); CHLORIDE SERUM 108 mmol/L (98-107); CREATININE SERUM 1.3 mg/dL (0.6-1.0); GLUCOSE SERUM 126 mg/dL (74-106); MAGNESIUM 1.6 mg/dL (1.8-2.4); PHOSPHOROUS 3.2 mg/dL (2.5-4.9); POTASSIUM SERUM 4.1 mmol/L (3.5-5.1); SODIUM SERUM 142 mmol/L (136-145)
[2018-07-14 06:07] LABS: BASOPHIL % 0.4 % (0-2); PLATELET COUNT 181 x10^3mcL (130-400); RED CELL DISTRIBUTION WIDTH 13.8 % (11.5-14.5)
[2018-07-14 09:11] VITALS: BP 135/58
[2018-07-14 13:38] VITALS: BP 142/58
[2018-07-14] MEDS ORDERED: CEPHALEXIN500 M1 PO (13:40)
[2018-07-14] MEDS ORDERED: SEN PO (13:41)
[2018-07-14 15:01] VITALS: Ht 152.4 cm; Wt 56.3 kg
[2018-07-14 17:44] VITALS: BP 124/47
[2018-07-14 21:45] VITALS: BP 145/66
[2018-07-15 05:38] VITALS: BP 110/56
[2018-07-15 08:16] VITALS: BP 132/33
[2018-07-15] MEDS ORDERED: FLA500 PO (11:23)
[2018-07-15 11:54] VITALS: BP 132/33
[2018-07-15 13:06] VITALS: BP 146/32
[2018-07-15 17:09] VITALS: BP 157/53
[2018-07-15 20:30] VITALS: BP 151/60
[2018-07-16 05:15] VITALS: BP 112/80
[2018-07-16 09:22] VITALS: BP 134/42
[2018-07-16 12:16] VITALS: BP 111/81
[2018-07-16 17:05] VITALS: BP 154/67
[2018-07-16 17:33] VITALS: BP 154/67
== END 2018-07-16 18:40 | DRG 371 ==
LOC: ED 17:38 → DU 21:16
PROVIDERS: Emergency Medicine; Family Medicine; Internal Medicine; Internal Medicine Gastroenterology
DX: A04.72 Enterocolitis due to Clostridium difficile, not specified as recurrent (principal); N17.0 Acute kidney failure with tubular necrosis; G93.41 Metabolic encephalopathy; I50.43 Acute on chronic combined systolic (congestive) and diastolic (congestive) heart failure; N39.0 Urinary tract infection, site not specified; E44.0 Moderate protein-calorie malnutrition; I13.0 Hypertensive heart and chronic kidney disease with heart failure and stage 1 through stage 4 chronic kidney disease, or unspecified chronic kidney disease; N18.9 Chronic kidney disease, unspecified; R00.1 Bradycardia, unspecified; M19.90 Unspecified osteoarthritis, unspecified site; R73.03 Prediabetes; D69.2 Other nonthrombocytopenic purpura; E78.5 Hyperlipidemia, unspecified; E03.9 Hypothyroidism, unspecified; G30.9 Alzheimer's disease, unspecified; F02.80 Dementia in other diseases classified elsewhere, unspecified severity, without behavioral disturbance, psychotic disturbance, mood disturbance, and anxiety; Z68.21 Body mass index [BMI] 21.0-21.9, adult; Z90.49 Acquired absence of other specified parts of digestive tract; Z90.722 Acquired absence of ovaries, bilateral
CPT/HCPCS: 36600; 82962; 84439; 87046; 87046-59; 92526-GN; 92610-GN; J0696; J3475; J7030; Q0092